=== PATIENT | male | born 1995 | race Hispanic/Latino ===

== ENCOUNTER 2017-03-14 18:41 | Emergency (ER) | payer SELFPAY ==
[~2017-03-14] VITALS: Ht 162.6 cm; Wt 120.5 kg
[~2017-03-14 18:41] MED LIST: CEPHALEXIN500 MG PO; CORTISPORIN OTI10 ML AD
[2017-03-14] MEDS ORDERED: AUGMENTIN875TAB PO (19:30)
[2017-03-14 19:40] VITALS: BP 121/72
== END 2017-03-14 19:40 | disposition home or self-care (01) | DRG 159 ==
LOC: ED 18:41
PROC: 0CQ0XZZ Repair Upper Lip, External Approach (ICD-10-PCS; principal; 2017-03-14)
DX: S01.551A Open bite of lip, initial encounter (principal); W54.0XXA Bitten by dog, initial encounter; Y93.89 Activity, other specified; Y92.009 Unspecified place in unspecified non-institutional (private) residence as the place of occurrence of the external cause

== ENCOUNTER 2022-07-23 22:47 | Emergency (ER) | payer OTHER ==
[~2022-07-23] VITALS: Ht 162.6 cm; Wt 140.5 kg
[~2022-07-23 22:47] MED LIST changes: +AUGMENTIN875TAB PO
[2022-07-23 23:33] VITALS: BP 127/79
[2022-07-23] MEDS ORDERED: AMOX/K CLAV875 M1 PO (23:40)
[2022-07-23] MEDS ORDERED: LORTAB 1010 MG PO (23:40)
[2022-07-23 23:46] VITALS: BP 116/71
[2022-07-24 00:26] VITALS: BP 130/80
[2022-07-24 00:30] VITALS: BP 128/85
== END 2022-07-24 00:43 | disposition home or self-care (01) | DRG 153 ==
LOC: ED 22:47
DX: H66.92 Otitis media, unspecified, left ear (principal)